=== PATIENT | male | born 1980 | race Hispanic/Latino ===

== ENCOUNTER 2023-03-08 22:45 | Emergency (ER) | payer OTHER ==
[2023-03-08] MEDS ORDERED: Ketorolac Tromethamine 30 MG/ML VIAL ONE (23:29)
[2023-03-09] MEDS ORDERED: Morphine 4 MG/ML VIAL ONE (03:25)
[2023-03-09] MEDS ORDERED: Ondansetron ODT 4 MG TAB ONE (03:25)
== END 2023-03-09 03:49 | disposition home or self-care (01) ==
LOC: ERS 22:45
DX: S93.402A Sprain of unspecified ligament of left ankle, initial encounter (principal); W01.0XXA Fall on same level from slipping, tripping and stumbling without subsequent striking against object, initial encounter
CPT/HCPCS: 96372; J1885; J2270; Q0162